=== PATIENT | male | born 1955 | race Caucasian/White ===

== ENCOUNTER 2016-10-24 10:46 | Inpatient (IN) | payer MEDICARE, MEDICAID ==
[~2016-10-24] VITALS: Ht 177.8 cm; Wt 121.8 kg
[~2016-10-24 10:46] MED LIST: ABILIFY5 M1 PO; ACT30 PO; AMLODIPINE BESY10 M1 PO; ASPIR LOW81 MG PO; CALCIUM; CLINDAMYCIN HC300 MG PO; COZAAR100 MG PO; CYMBALTA60 M1 PO; HYDROCHLOROTHIA25 MG PO; HYDROCODONE-APA1 TA2 PO; METFORMIN HCL1000 MG PO; PRAVACHOL20 MG PO; RITALIN-SR20 MG PO; VITAMIN-D1000 IU PO; XANAX0.5 MG PO; XTANDI40 M1 PO
[2016-10-24 11:30] LABS: BASOPHIL % 0.9 % (0-2); PLATELET COUNT 240 x10^3mcL (130-400)
[2016-10-24 11:31] LABS: RED CELL DISTRIBUTION WIDTH 14.6 % (11.5-14.5)
[2016-10-24 11:45] LABS: ALKALINE PHOSPHATASE 99 U/L (46-116); ALT/SGPT 19 U/L (16-63); AST/SGOT 22 U/L (15-37); BILIRUBIN TOTAL 0.67 mg/dL (0.20-1.00); CALCIUM 8.5 mg/dL (8.5-10.1); CARBON DIOXIDE 28.9 mmol/L (21-32); CHLORIDE SERUM 85 mmol/L (98-107); CREATININE SERUM 0.8 mg/dL (0.7-1.3); GFR1 > 60 mL/min; GLUCOSE SERUM 141 mg/dL (74-106); TOTAL PROTEIN, SERUM 7.3 g/dL (6.4-8.2)
[2016-10-24 11:49] LABS: ALBUMIN 3.3 g/dL (3.4-5.0)
[2016-10-24 11:50] LABS: POTASSIUM SERUM 2.9 mmol/L (3.5-5.1); SODIUM SERUM 121 mmol/L (136-145)
[2016-10-24] MEDS ORDERED: ZYTIGA250 MG PO (12:46)
[2016-10-24] MEDS ORDERED: GLIMEPIRIDE1 M1 PO (12:47)
[2016-10-24 14:30] VITALS: BP 142/80
[2016-10-24 17:17] LABS: MAGNESIUM 1.7 mg/dL (1.8-2.4); PHOSPHOROUS 3.4 mg/dL (2.5-4.9)
[2016-10-24 17:19] LABS: CHOLESTEROL/HDL RATIO 2.6
[2016-10-24 17:23] VITALS: BP 142/80
[2016-10-24 17:25] LABS: T3 TOTAL 0.89 ng/mL
[2016-10-24 17:27] LABS: FREE T4 0.9 ng/dL (0.76-1.46); FREE THYROXINE INDEX 2.2 ug/dL (1.4-4.5); T4(THYROXINE) 6.6 ug/dL (4.7-13.3)
[2016-10-24 18:50] VITALS: BP 125/81
[2016-10-24 19:19] LABS: CALCIUM 8.4 mg/dL (8.5-10.1); CARBON DIOXIDE 28.6 mmol/L (21-32); CHLORIDE SERUM 87 mmol/L (98-107); CREATININE SERUM 0.8 mg/dL (0.7-1.3); GFR1 > 60 mL/min; GLUCOSE SERUM 134 mg/dL (74-106); POTASSIUM SERUM 3.4 mmol/L (3.5-5.1)
[2016-10-24 19:29] LABS: SODIUM SERUM 123 mmol/L (136-145)
[2016-10-24 22:30] VITALS: BP 138/72
[2016-10-24 22:52] LABS: CALCIUM 8.4 mg/dL (8.5-10.1); CARBON DIOXIDE 29.5 mmol/L (21-32); CHLORIDE SERUM 89 mmol/L (98-107); CREATININE SERUM 0.8 mg/dL (0.7-1.3); GFR1 > 60 mL/min; GLUCOSE SERUM 141 mg/dL (74-106); POTASSIUM SERUM 3.1 mmol/L (3.5-5.1); SODIUM SERUM 125 mmol/L (136-145)
[2016-10-25 08:54] LABS: CALCIUM 8.3 mg/dL (8.5-10.1); CARBON DIOXIDE 29.8 mmol/L (21-32); CHLORIDE SERUM 91 mmol/L (98-107); CREATININE SERUM 0.8 mg/dL (0.7-1.3); GFR1 > 60 mL/min; GLUCOSE SERUM 144 mg/dL (74-106); MAGNESIUM 2.2 mg/dL (1.8-2.4); PHOSPHOROUS 2.9 mg/dL (2.5-4.9); POTASSIUM SERUM 3.8 mmol/L (3.5-5.1); SODIUM SERUM 127 mmol/L (136-145)
[2016-10-25 08:55] LABS: BASOPHIL % 0.2 % (0-2); PLATELET COUNT 226 x10^3mcL (130-400); RED CELL DISTRIBUTION WIDTH 14.5 % (11.5-14.5)
[2016-10-25 11:09] VITALS: BP 147/83
[2016-10-25 14:28] VITALS: BP 143/79
[2016-10-25 15:23] VITALS: BP 143/79
[2016-10-25 16:03] LABS: CALCIUM 8.1 mg/dL (8.5-10.1); CARBON DIOXIDE 28.4 mmol/L (21-32); CHLORIDE SERUM 91 mmol/L (98-107); CREATININE SERUM 0.9 mg/dL (0.7-1.3); GFR1 > 60 mL/min; GLUCOSE SERUM 140 mg/dL (74-106); POTASSIUM SERUM 3.2 mmol/L (3.5-5.1); SODIUM SERUM 127 mmol/L (136-145)
== END 2016-10-25 18:00 | disposition short-term general hospital (02) | DRG 177 ==
LOC: ED 10:46 → DU 12:16
PROVIDERS: Emergency Medicine; ADMIT Family Medicine
DX: J69.0 Pneumonitis due to inhalation of food and vomit (principal); G93.41 Metabolic encephalopathy; E87.1 Hypo-osmolality and hyponatremia; C79.51 Secondary malignant neoplasm of bone; E44.1 Mild protein-calorie malnutrition; D68.69 Other thrombophilia; K56.7 Ileus, unspecified; C61 Malignant neoplasm of prostate; E11.65 Type 2 diabetes mellitus with hyperglycemia; M94.0 Chondrocostal junction syndrome [Tietze]; I10 Essential (primary) hypertension; F10.10 Alcohol abuse, uncomplicated; E83.42 Hypomagnesemia; E87.6 Hypokalemia; E02 Subclinical iodine-deficiency hypothyroidism; E66.9 Obesity, unspecified; Z79.82 Long term (current) use of aspirin; Z68.38 Body mass index [BMI] 38.0-38.9, adult; Z79.84 Long term (current) use of oral hypoglycemic drugs; D75.89 Other specified diseases of blood and blood-forming organs
CPT/HCPCS: 82962; 83880; 84439; 94150; J2270; J2405; J2543; J3010; J3475; J3480; J7030; J7620; Q0092

== ENCOUNTER 2017-06-12 10:49 | Emergency (ER) | payer OTHER ==
[~2017-06-12] VITALS: Ht 175.3 cm; Wt 104.3 kg
[~2017-06-12 10:49] MED LIST changes: +GLIMEPIRIDE1 M1 PO; +ZYTIGA250 MG PO
[2017-06-12 10:55] VITALS: Ht 175.3 cm; Wt 104.3 kg
[2017-06-12 12:07] VITALS: BP 148/88
== END 2017-06-12 11:45 | disposition home or self-care (01) ==
LOC: ED 10:49
DX: T83.038A Leakage of other urinary catheter, initial encounter (principal); I10 Essential (primary) hypertension; E11.9 Type 2 diabetes mellitus without complications; C61 Malignant neoplasm of prostate; C79.51 Secondary malignant neoplasm of bone; Y92.89 Other specified places as the place of occurrence of the external cause

== ENCOUNTER 2017-08-15 16:15 | Emergency (ER) | payer MEDICARE ==
[~2017-08-15] VITALS: Ht 175.3 cm; Wt 104.3 kg
[2017-08-15 16:25] VITALS: Ht 175.3 cm; Wt 104.3 kg
[2017-08-15 17:30] VITALS: BP 169/95
== END 2017-08-15 17:30 | disposition home or self-care (01) ==
LOC: ED 16:15
DX: R33.9 Retention of urine, unspecified (principal); I10 Essential (primary) hypertension; E11.9 Type 2 diabetes mellitus without complications; Z88.8 Allergy status to other drugs, medicaments and biological substances

== ENCOUNTER 2017-08-16 17:30 | Emergency (ER) | payer MEDICARE ==
[~2017-08-16] VITALS: Ht 175.3 cm; Wt 108.4 kg
[2017-08-16 17:34] VITALS: Ht 175.3 cm; Wt 108.4 kg
[2017-08-16 17:59] VITALS: BP 149/96
== END 2017-08-16 17:59 | disposition home or self-care (01) ==
LOC: ED 17:30
DX: T83.038A Leakage of other urinary catheter, initial encounter (principal); E11.9 Type 2 diabetes mellitus without complications; I10 Essential (primary) hypertension; Z88.8 Allergy status to other drugs, medicaments and biological substances; Y92.89 Other specified places as the place of occurrence of the external cause

== ENCOUNTER 2017-08-23 11:09 | Emergency (ER) | payer MEDICARE ==
[~2017-08-23] VITALS: Ht 175.3 cm; Wt 108.9 kg
[2017-08-23 11:30] VITALS: BP 172/102; Ht 175.3 cm; Wt 108.9 kg
== END 2017-08-23 12:50 | disposition home or self-care (01) ==
LOC: ED 11:09
DX: T83.038A Leakage of other urinary catheter, initial encounter (principal); Z85.46 Personal history of malignant neoplasm of prostate; I10 Essential (primary) hypertension; E11.9 Type 2 diabetes mellitus without complications